=== PATIENT | male | born 1965 | race Caucasian/White ===

== ENCOUNTER 2017-06-23 16:55 | Emergency (ER) | payer SELFPAY ==
[~2017-06-23] VITALS: Ht 198 cm; Wt 111.0 kg
[2017-06-23 16:58] VITALS: BP 142/81; PULSE 73; TEMP 98.7
[2017-06-23] MEDS ORDERED: NORCO 325 MG-51 TAB PO (18:32)
== END 2017-06-23 18:54 | disposition home or self-care (01) ==
LOC: COL.ER 16:55
DX: M62.830 Muscle spasm of back (principal); F17.210 Nicotine dependence, cigarettes, uncomplicated; X50.1XXA Overexertion from prolonged static or awkward postures, initial encounter
CPT/HCPCS: J1885